=== PATIENT | female | born 1970 | race Caucasian/White ===

== ENCOUNTER 2016-08-24 10:31 | Day surgery (SDC) | payer OTHER ==
[2016-08-23 19:16] VITALS: BMI 33.4
[2016-08-24] MEDS ORDERED: PROPOFOL 20 ML ONE ×2 (14:07)
[2016-08-24] MEDS ORDERED: ROCURONIUM BROMIDE 50 MG/5 ML VIAL ONE (14:07)
[2016-08-24] MEDS ORDERED: LIDOCAINE HCL 2% 100 MG/5 ML DISP.SYRIN ONE (14:07)
[2016-08-24] MEDS ORDERED: ceFAZolin SODIUM 1 GM VIAL ONE ×3 (14:07→16:30)
--- NOTE | 2016-08-24 15:47 | HP ---
History & Physical Update - History History: No Change - Physical Physical: No Change - Assessment Assessment: No Change - Plan Plan: No Change
[2016-08-24] MEDS ORDERED: MIDAZOLAM HCL 2 MG/2 ML SINGLE DOSE VIAL ONE (16:04)
[2016-08-24] MEDS ORDERED: ceFAZolin SODIUM 1 GM VIAL IVPB ONE (16:35)
[2016-08-24] MEDS ORDERED: BUPIVACAINE HCL/PF (5 MG/ML) 30 ML VIAL IJ ONE ×2 (16:38)
[2016-08-24] MEDS ORDERED: BUPIVACAINE HCL/PF 0.5% (5MG/ML) 10 ML VIAL ONE (16:40)
[2016-08-24] MEDS ORDERED: DESFLURANE GAS 240 ML BOTTLE IH ONE (16:40)
--- NOTE | 2016-08-24 17:40 | OP ---
Operative Note - Note: Operative Date: 08/24/16 Pre-Operative Diagnosis: chronic cholecystitis Operation: laparoscopic cholecystectomy Post-Operative Diagnosis: Same as Pre-op Surgeon: Demetrius Regalado Senior Application Programmer: Dimple Partida Anesthesiologist/HAND PAINT MIXER: Tanisha Gonzalez Anesthesia: General Specimens Removed: gallbladder Estimated Blood Loss (mls): 5 Fluid Volume Replaced (mls): 600 Operative Report Dictated: Yes
--- NOTE | 2016-08-24 17:41 | SURG ---
Surgery No Bake Molder Note No Bake Molder: Dimple Partida PA-C Date of Service: 08/24/16 Diagnosis: chronic cholecystitis Procedure: laparoscopic cholecystectomy I was present for the entirety of the operative procedure. For further detail, please refer to operative report. Visit type - Case Type Case Type: Scheduled Admission - New patient This patient is new to me today: Yes Date on this admission: 08/24/16
[2016-08-24] MEDS ORDERED: oxyCODONE HCL 5 MG TABLET PO PRN (17:59)
[2016-08-24] MEDS ORDERED: ONDANSETRON 4 MG/2 ML VIAL IVPUSH PRN (17:59)
[2016-08-24] MEDS ORDERED: LACTATED RINGERS SOLUTION 1,000 ML IV SCH (18:00)
[2016-08-24 18:17] VITALS: TEMP 98
[2016-08-24] MEDS ORDERED: oxyCODONE HCL 5 MG TABLET ONE (18:53)
[2016-08-24 19:58] VITALS: BP 126/78; PULSE 70
--- NOTE | 2016-08-25 14:10 | OP ---
DATE OF OPERATION: 08/24/2016 PROCEDURE: Laparoscopic cholecystectomy. PREOPERATIVE DIAGNOSIS: Chronic cholecystitis with history of gallstone pancreatitis. POSTOPERATIVE DIAGNOSIS: Chronic cholecystitis with history of gallstone pancreatitis. SURGEON: Demetrius Regalado MD COMFORT FILLER: CONSTANCE Danielle ANESTHESIA: General endotracheal. FINDINGS AND PROCEDURE: This is a 46-year-old female with a history of gallstone pancreatitis in December 2015 for which patient was found to have a gallbladder with multiple stones and marked pancreatitis, no common bile duct stones though. Patient had subsequently developed intermittent right upper quadrant and left upper quadrant pains. A repeat ultrasound a month prior revealed gallbladder with multiple stones and a normal-sized common duct, so patient was advised removal of the gallbladder and consent was obtained after discussing the risks, benefits, and alternatives to the procedure. Patient was brought to the operating room and placed in the supine position. General endotracheal anesthesia was administered. The abdomen was prepped and draped in the usual sterile fashion. Using 0.25% Marcaine, local anesthesia was administered to the proposed incision sites. The peritoneal cavity was entered using the Optiview technique with 5-mm 0-degree scope inserted in a 5-mm optical port. Pneumoperitoneum was established. The peritoneal cavity was carefully inspected. It was noted to be free of inadvertent injury. Pneumoperitoneum was then established. An 11-mm port was inserted at the subxiphoid region and two 5-mm ports were inserted at the right subcostal region, 1 at the midclavicular line and 1 at the anterior axillary line. The gallbladder was noted to be distended and had to be decompressed to enable grasping of the fundus. The fundus was grasped and retracted anteriorly and small flimsy omental adhesions to the gallbladder were taken down using the hook dissector connected to monopolar cautery. The infundibulum was grasped and retracted inferolaterally to expose the hepatocystic triangle. The visceral peritoneum covering the triangle was scored, using the hook dissector to identify the cystic duct and cystic artery. Both of these structures were carefully isolated using the [place] dissector combined with the hook dissector. The cystic artery was clipped at 3 points followed by transection, leaving 2 clips with the cystic artery stump. This then exposed the cystic duct which was also carefully isolated and clipped at 3 points. This was transected as well, leaving 2 clips at the cystic duct stump. The gallbladder was then resected from its bed in antegrade fashion using the hook dissector connected to monopolar cautery. When this was completed, the gallbladder was placed in Endobag and extracted via the subxiphoid incision. The gallbladder bed as well as the Carpenter pouch was irrigated with sterile normal saline to dilute the small amount of bile leak, suctioned until the return was clear. The pneumoperitoneum was evacuated and the ports were removed. The wounds were closed with subcuticular Biosyn 4-0 sutures reinforced with Dermabond. The patient was successfully extubated and transferred to the postanesthesia care unit in satisfactory condition. Estimated blood loss was about 5 mL. Wound class: Clean, contaminated. The patient received 2 g of Ancef prior to the start of the procedure. Hamida [id number]
--- NOTE | 2016-08-26 16:14 | PATH ---
Surgical Pathology Report Patient Name: VINCENT ALVARADO [facility]. Rec. #: [id number] /Age/Gender: 1970 (Age: 46) / F Account: [id number] Location: [facility] SURGICAL Taken: 08/24/2016 Received: 08/25/2016 Reported: 08/26/2016 Physicians: Demetrius Regalado M.D. Specimen(s) Received GALLBLADDER Clinical History Chronic cholecystitis Final Diagnosis GALLBLADDER, CHOLECYSTECTOMY: MARKED CHRONIC CHOLECYSTITIS AND CHOLELITHIASIS. Electronically Signed Red Li M.D. Gross Description Received in formalin, labeled "gallbladder" is a 6.5 x 2.3 x 1.7 cm gallbladder with a 0.2 cm in length portion of cystic duct attached. The outer surface is case rider and varies from smooth to shaggy. The lumen contains black, sludge-like bile as well as numerous choleliths averaging 0.1 cm in greatest dimension. The mucosa is brown and focally eroded. The wall of the gallbladder ranges from 0.1-0.4 cm in thickness. Career Services Officer sections are submitted in one cassette. 08/25/201608/25/2016
== END 2016-08-24 23:35 | disposition home or self-care (01) ==
LOC: JASU-SURG 10:31 → J5S 19:45 → JASU-SURG 23:35
PROVIDERS: ATTEND Surgery
PROC: 0FT44ZZ Resection of Gallbladder, Percutaneous Endoscopic Approach (ICD-10-PCS; principal; 2016-08-24 13:00)
DX: K81.1 Chronic cholecystitis (principal)
CPT/HCPCS: 84703; 88304-TC; 94760; J3490